=== PATIENT | male | born 1955 | race Caucasian/White ===

== ENCOUNTER → 2019-10-15 | Emergency (ER) | payer OTHER ==
[~2019-10-15] VITALS: Ht 152.4 cm; Wt 99.8 kg
[~2019-10-15] MED LIST: COZAAR25 MG; MECLIZINE HCL25 MG PO
== END | disposition home or self-care (01) ==
LOC: ER 18:33
DX: R42 Dizziness and giddiness (principal); R07.89 Other chest pain

== ENCOUNTER 2022-05-17 07:29 | Outpatient (CLI) | payer OTHER | END 2022-05-17 07:32 | disposition home or self-care (01) | LOC: NUCLEAR 07:29 | PROVIDERS: ATTEND Internal Medicine Rheumatology | DX: I70.213 Atherosclerosis of native arteries of extremities with intermittent claudication, bilateral legs (principal) ==

== ENCOUNTER 2022-08-17 07:13 | Outpatient (CLI) | payer OTHER | END 2022-08-17 07:15 | disposition home or self-care (01) | LOC: NUCLEAR 07:13 | PROVIDERS: ATTEND Internal Medicine Cardiovascular Disease | DX: I20.1 Angina pectoris with documented spasm (principal) | CPT/HCPCS: 78452; 93017; A9500; J0153 ==